=== PATIENT | female | born 1970 | race Caucasian/White ===

== ENCOUNTER → 2017-04-02 | Outpatient (CLI) | payer OTHER ==
--- NOTE | 2017-04-02 16:47 | KCIC ---
SHOULDER 2+V LEFT History: Severe left shoulder pain and limited range of motion post injury 1.5 weeks ago Comparison: None. Findings: 3 views left shoulder are submitted. No acute fracture is identified by radiographs. Left humeral head articulates normally with the glenoid. There is mild degenerative change of the acromioclavicular joint which is questionably minimally widened. Impression: 1. Other than questionable minimal widening of the left acromioclavicular joint, no acute osseous normality is identified. Electronically signed by: Harish Tejada MD (04/02/2017 4:44 PM) [facility]1
== END | disposition home or self-care (01) ==
LOC: KCIC 13:29
PROVIDERS: ATTEND Nurse Practitioner Family
DX: M25.512 Pain in left shoulder (principal)
CPT/HCPCS: 73030

== ENCOUNTER → 2017-04-06 | Outpatient (CLI) | payer OTHER ==
--- NOTE | 2017-04-06 13:12 | KCIC ---
MR of the left shoulder Indication: Left shoulder pain. Recent injury. Technique: Standard multiplanar sequences are obtained. Findings: Acromioclavicular joint: Mildly degenerative. Rotator cuff: Mild tendinosis signal and thickening but no evidence of a tear. Trace subdeltoid bursal fluid. Glenohumeral cartilage: No acute defect or advanced DJD. Fluid: No significant joint effusion. Labrum: No evidence of labral tear or para labral cyst. Biceps tendon: Intact Bones: No lesion or acute fracture. Soft tissue: No acute findings. Impression: Mild rotator cuff tendinosis without evidence of a tear. Electronically signed by: Mani Washington MD (04/06/2017 1:09 PM) [facility]2
== END | disposition home or self-care (01) ==
LOC: KCIC MRI 11:34
PROVIDERS: ATTEND Nurse Practitioner Family
DX: S49.92XA Unspecified injury of left shoulder and upper arm, initial encounter (principal); X58.XXXA Exposure to other specified factors, initial encounter; Y93.89 Activity, other specified; Y92.89 Other specified places as the place of occurrence of the external cause; Y99.8 Other external cause status
CPT/HCPCS: 73221

== ENCOUNTER → 2017-07-16 | Outpatient (CLI) | payer OTHER | END | disposition home or self-care (01) | LOC: KCIC 10:49 | DX: L03.032 Cellulitis of left toe (principal) | CPT/HCPCS: 73660 ==

== ENCOUNTER → 2018-12-16 | Outpatient (CLI) | payer OTHER ==
--- NOTE | 2018-12-16 19:06 | KCIC ---
STUDY: MRI of the left knee without contrast INDICATION: Left knee pain. COMPARISON: No prior cross-sectional imaging of the left knee is available for review. TECHNIQUE: Multiplanar MR imaging of the left knee performed without the use of intravenous or intra-articular contrast. FINDINGS: Menisci: Complex tearing of the medial meniscus body, posterior horn and root with the posterior horn somewhat macerated. Cystic structure posterior to the PCL, image 14 series 7, measuring up to 1.3 cm is suspicious for a prominent parameniscal cyst. The medial meniscus is extruded into the medial gutter by approximately 5 mm. No discrete lateral meniscal tear. Cruciate ligaments: Intact ACL and PCL. Collateral ligaments: Bowing of the MCL and keeping with subjacent medial meniscal extrusion. No acute injury to the medial or lateral collateral ligaments. Tendons: Very mild distal patellar tendinosis. No acute injury to the tendons of the knee. Cartilage: Patellofemoral: Extensive full-thickness chondral loss involving the medial patella facet and extending to involve the median ridge with subchondral edema/cystic change. Chondral loss at the inferior aspect of the medial trochlea. Lateral compartment: No full thickness defect identified. Medial compartment: Chondral thinning at the weight medial compartment as well as full-thickness chondral loss at the far posterior nonweightbearing medial femoral condyle, image 14 series 3, with subchondral edema/cystic change. Bones: Degenerative signal changes relating to overlying chondrosis, as above. No acute fracture. Miscellaneous: Moderate volume knee joint effusion. Tiny Castellanos's cyst. Very mild pes anserine bursitis. Small proximal tibiofibular joint effusion. IMPRESSION: 1. Complex tearing of the medial meniscus body, posterior horn and root with the posterior horn somewhat macerated. Probable prominent parameniscal cyst located posterior to the PCL. Medial meniscal extrusion into the medial gutter. No discrete tear of the lateral meniscus. 2. Areas of full-thickness chondral loss involving the patellofemoral compartment more so than the medial compartment, as above, with associated subchondral edema/cystic change. 3. Moderate volume knee joint effusion, tiny Castellanos's cyst and very mild pes anserine bursitis. Electronically signed by: DYLON DOOLEY MD (12/16/2018 7:03 PM) [facility]-KC[facility]2
== END | disposition home or self-care (01) ==
LOC: KCIC MRI 14:18
PROVIDERS: ATTEND Nurse Practitioner Family
DX: S83.232A Complex tear of medial meniscus, current injury, left knee, initial encounter (principal); M71.22 Synovial cyst of popliteal space [Baker], left knee; M25.462 Effusion, left knee; X58.XXXA Exposure to other specified factors, initial encounter; Y93.89 Activity, other specified; Y92.89 Other specified places as the place of occurrence of the external cause; Y99.8 Other external cause status
CPT/HCPCS: 73721

== ENCOUNTER → 2021-05-19 | Outpatient (CLI) | payer OTHER ==
--- NOTE | 2021-05-19 14:48 | KCIC ---
EXAM: Lumbar spine, 3 views. HISTORY: Pain. COMPARISON: None. FINDINGS: 3 views of the lumbar spine are obtained. There is no listhesis. There is multilevel endpla te remodeling. There is facet arthropathy predominantly at the lumbosacral junction. There is bone de los santos spected demineralization. IMPRESSION: Multilevel degenerative change, described above. No acute osseous finding. Electronically signed by: Paloma Urrutia MD (05/19/2021 2:46 PM) [id number]
--- NOTE | 2021-05-19 14:48 | KCIC ---
EXAM: Pelvis and bilateral hips, 3 views. HISTORY: Pain. COMPARISON: None. FINDINGS: A frontal view the pelvis and frog-leg views of both hips are obtained. There is no fractur e, dislocation or subluxation. The femoral heads are normal in configuration. There are anastomotic s utures within the pelvis. IMPRESSION: No acute osseous finding. Electronically signed by: Paloma Urrutia MD (05/19/2021 2:45 PM) [id number]
== END ==
LOC: KCIC 13:22
PROVIDERS: ATTEND Nurse Practitioner Family
DX: M47.817 Spondylosis without myelopathy or radiculopathy, lumbosacral region (principal); M48.8X7 Other specified spondylopathies, lumbosacral region; M25.551 Pain in right hip; M25.552 Pain in left hip
CPT/HCPCS: 72100; 73521

== ENCOUNTER → 2021-05-30 | Outpatient (CLI) | payer OTHER ==
--- NOTE | 2021-05-30 09:37 | KCIC ---
EXAM: Lumbar spine MRI without contrast. HISTORY: Degenerative disc disease. Bilateral lower extremity numbness. TECHNIQUE: Multiplanar, multisequence magnetic resonance imaging of the lumbar spine was performed wi thout contrast. COMPARISON: None. FINDINGS: There is no significant listhesis. There is multilevel endplate remodeling and disc desicca tion. There are multiple endplate Schmorl's nodes. There is no suspicious osseous lesion. There is no acute or subacute fracture. The conus terminates at the superior aspect of L2. At T11-T12, there is a small right paracentral disc protrusion superimposed on endplate remodeling. T here is moderate bilateral facet arthropathy. There is hypertrophy of the ligamentum flavum. There is mild central canal stenosis and slight deformation of the right ventral aspect of the spinal cord. At T12-L1, there is mild left facet arthropathy. There is no stenosis. At L1-L2, there is a disc bulge and endplate remodeling. There is mild right facet arthropathy. There is no stenosis. At L2-L3, there is a disc bulge and endplate remodeling. There is mild bilateral facet arthropathy. T here is no stenosis. At L3-L4, there is a disc bulge and endplate remodeling. There is moderate right and mild left facet arthropathy. There is fluid in the right facet joint. There is hypertrophy of the ligamentum flavum. There is prominent dorsal epidural fat. There is mild bilateral foraminal stenosis. There is moderate central canal stenosis. At L4-L5, there is a disc bulge and endplate remodeling. There is no stenosis. At L5-S1, there is a posterior central disc protrusion superimposed on a disc bulge and endplate janes deling. There is mild right and moderate left facet arthropathy. There is mild left foraminal stenosi s with suspected abutment of the exiting left L5 nerve root. IMPRESSION: Multilevel degenerative change involving the lower thoracic and lumbar spine, described i n detail above. This is associated with mild central canal stenosis at T11-T12, mild bilateral forami nal and moderate central canal stenosis at L3-L4, and mild left foraminal stenosis with suspected abu tment of the exiting left L5 nerve root at L5-S1. Electronically signed by: Paloma Urrutia MD (05/30/2021 9:34 AM) [id number]
== END ==
LOC: KCIC MRI 08:01
PROVIDERS: ATTEND Nurse Practitioner Family
DX: M47.815 Spondylosis without myelopathy or radiculopathy, thoracolumbar region (principal); M48.04 Spinal stenosis, thoracic region; M48.061 Spinal stenosis, lumbar region without neurogenic claudication; M51.27 Other intervertebral disc displacement, lumbosacral region; M48.8X7 Other specified spondylopathies, lumbosacral region; M51.46 Schmorl's nodes, lumbar region; M51.36 Other intervertebral disc degeneration, lumbar region
CPT/HCPCS: 72148

== ENCOUNTER → 2021-06-06 | Outpatient (CLI) | payer OTHER ==
[~2021-06-06] MED LIST: CANA300T PO; CITA40TA6 PO; CYAN500T7 PO; DICL75TA PO; FURO-69 PO; GABA300C18 PO; GLIP10TA PO; LOSA1TAB22 PO; SITA1TAB11 PO; VITAMIN D; ZOLP5TAB5 PO
--- NOTE | 2021-06-06 16:14 | PDOC1 ---
INITIAL PAIN CONSULT DATE OF SERVICE: DOS: DATE: 06/06/21 TIME: 16:06 CHIEF COMPLAINT: Chief Complaint: Low back and right lower extremity pain HISTORY OF PRESENT ILLNESS: 51-year-old female presents with history of pain low back right lower extremity for about 2 months now not result of any specific injury or accident that she is aware of is getting worse with time worse with standing walking changing posit ions better with sitting or laying down but is been waking her from sleep about 3-4 times at night patient reports it does not affect her bowel bladder control does affect her ability to walk and stand especially with standing for more than 5 to 10 minutes patient reports is worse in the morning and then worse as the day goes on patient reports its constant sharp in the back shooting and throbbing in the right lower extremity radiating into the posterior gluteus lateral thigh posterior calf posterior knee as well and much weaker on the right side than the left with walking and standing. Patient reports she has not fallen but she has significant weakness and has difficulty dragging her right foot after he has been on her feet for several hours. Patient has had chiropractic treatment the past also massage therapies and is doing physical therapy exercises as her family member is a physical therapist and is helping her with these as well patient reports no significant improvement and has been temporary as well as the chiropractic treatments and massage therapies. Patient is taking acetaminophen at least 3-4 times a day and is not helping significantly as well she is also tried [id number] ibuprofen but this caused some stomach upset. Patient reports that her disability rating from 0-10 10 me the worst is a 6 with family home responsibilities 7 with occupation 6 with sexual behavior 5 with recreation social activity 5 with self-care and 3 with life support activities. Patient did have a MRI scan lumbar spine showing multilevel degenerative change with disc bulging L3-4 L4-5 and L5-S1 with moderate right and mild left facet arthropathy at L3-4 with mild bilateral foraminal stenosis and moderate central canal stenosis L5-S1 shows posterior central disc protrusion superimposed on disc bulge and endplate remodeling mild right and moderate left facet arthropathy with mild left foraminal stenosis with suspected abutment of the exiting L5 nerve root. Patient reports no loss of motor function but significant fatigability and "tired feeling" of the right lower extremity with activity. PAST MEDICAL HISTORY: PMH: Arthritis, hypertension, type 2 diabetes, polycystic ovaries, depression PREVIOUS SURGERIES: Past Surgical Hx: Total abdominal hysterectomy, left knee scope CURRENT MEDICATIONS: Current Meds: Active Scripts Medications Dose Route/Sig Max Daily Dose Days Date Category Gabapentin (Gabapentin) 300 Mg Capsule 300 Mg PO HS 06/06/21 Reported Losartan-Hctz 100-25 Mg Tab (Losartan/Hydrochlorothiazide) 1 Each Tablet 1 Tab PO DAILY 06/06/21 Reported Janumet 50-1,000 Mg Tablet (Sitagliptin Phos/Metformin Hcl) 1 Each Tablet 1 Tab PO BID 06/06/21 Reported Zolpidem Tartrate 5 Mg Tablet 5 Mg PO PRN QHS PRN 06/06/21 Reported Glucotrol (Glipizide) 10 Mg Tablet 20 Mg PO BID 06/06/21 Reported Diclofenac Sodium 75 Mg Tablet.dr 1 Tab PO BID 06/06/21 Reported [Vitamin D 1 daily] 06/06/21 Reported Citalopram Hbr (Citalopram Hydrobromide) 40 Mg Tablet 1 Tab PO DAILY 06/06/21 Reported Lasix (Furosemide) 20 Mg Tablet 1 Tab PO DAILY 30 06/06/21 Reported Vitamin B-12 (Cyanocobalamin (Vitamin B-12)) 500 Mcg Tablet 1 Tab PO DAILY 30 06/06/21 Reported Invokana (Canagliflozin) 300 Mg Tablet 1 Tab PO DAILY 30 06/06/21 Reported ALLERGIES; Allergies: Coded Allergies: mushroom (Verified Allergy, Severe, "swelling and can't breathe", 06/06/21) pepper (genus Capsicum) (Verified Allergy, Severe, Tongue swells, hives., 06/06/21) FAMILY HISTORY: Family Hx: Diabetes, hypertension SOCIAL HISTORY: Social Hx: Patient is under alcohol does not smoke not use any illegal illicit recreational drugs is lives with her spouse lives in [facility] and 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 PHYSICAL EXAM: VS: Blood pressure 177/117 rechecked 156/112 pulse 80 respiration 16 temperature 98.0 F height 68 inches weight is 282 pounds PE: PHYSICAL EXAMINATION: GENERAL: The patient is awake, alert, oriented, appropriate, very pleasant in demeanor HEENT: Shows normocephalic, atraumatic. Extraocular movements are intact and symmetrical. Oral cavity: Mucous membranes moist and pink. Dentition is intact. NECK: Shows anterior throat supple without palpable lymphadenopathy noted. Swallow reflex symmetrical. CHEST: Shows normal on inspection. Breath sounds are clear bilaterally, distant but no rales rhonchi wheezes auscultated. HEART: Shows S1, S2 clear. No murmurs auscultated. ABDOMEN: Soft, nontender, nondistended. No palpable organomegaly is noted. No rebound or guarding demonstrated. BACK: Shows spine grossly in the midline. Normal-appearing cervical lordotic curvature. There is increased thoracic kyphosis, minor flattening of the lumbar lordotic curvature. Lumbar paraspinous muscles show symmetrical on inspection, on palpation shows some moderate tenderness diffusely throughout the upper, middle and lower distribution of the paraspinous muscles bilaterally and also into the lower thoracic paraspinous musculature, firm and tender, but without specific trigger points, without radiation of pain. The patient has good rotational motion of the lumbar spine, both laterally as well as extension and flexion without significant difficulty. No tenderness over the spinous processes, sacrum or sacroiliac regions. EXTREMITIES: Lower extremities show deep tendon reflexes 1+ in the patellar and tendo calcaneus tendons. Motor exam is 4 on a scale of 5 with right dorsiflexion, extension, quadriceps and hamstring flexion and 5/5 on the left. Peripheral pulses are 1+ posterior tibial. No peripheral edema is noted bilaterally. Lower extremities are warm and dry to touch, equal in color and a ppearance. Straight leg raise noted to be positive on the right about 35 degrees, left side is negative. Gaenslen's and James's maneuvers are negative bilaterally. The patient is able to stand, stand on her toes without significant difficulty loss of balance, walks with a favoring gait favoring the right lower extremity with a slight limp not using any assistive devices to amb ulate. SKIN: Shows warm and dry, good turgor. No edema. No sores, rashes or bruising throughout. IMPRESSION: Impression: 51-year-old female with a 2-month history increasing pain low back right lower extremity radicular fashion following an L5-S1 dermatomal distribution. MRI scan lumbar spine as noted Hypertension Arthritis Diabetes type 2 Plan: Options were discussed the patient including serve medical managements physical therapies and interventional techniques. As patient is currently undergoing chiropractic treatment as well as therapies she would like to pursue interventional techniques. We discussed a lumbar epidural steroid injection using descriptions as well as anatomical models to describe the procedure. Patient wait for preauthorization with her insurance provider, once obtained we will have her return for translaminar approach L5-S1 level lumbar epidural steroid injection with fluoroscopic guidance. In the meantime, patient will continue with stretching strength exercises chiropractic treatment as well as oral analgesics as currently. MAGGI HUFF MD Jun 06, 2021 16:14
== END | disposition home or self-care (01) ==
LOC: PNCL 14:14
PROVIDERS: ATTEND Anesthesiology
DX: M54.50 Low back pain, unspecified (principal); M79.604 Pain in right leg; M19.90 Unspecified osteoarthritis, unspecified site; I10 Essential (primary) hypertension; E11.9 Type 2 diabetes mellitus without complications; F32.9 Major depressive disorder, single episode, unspecified; Z79.84 Long term (current) use of oral hypoglycemic drugs; Z79.899 Other long term (current) drug therapy; Z90.710 Acquired absence of both cervix and uterus; Z98.890 Other specified postprocedural states; Z88.8 Allergy status to other drugs, medicaments and biological substances
CPT/HCPCS: 99214; G0463

== ENCOUNTER → 2021-06-20 | Outpatient (CLI) | payer OTHER ==
[~2021-06-20] MED LIST changes: +IOHEXOL 180 MG/ML 10 ML VIAL. ONE; +methylPREDNISolone ACETATE 80 MG/ML VIAL. ONE
--- NOTE | 2021-06-20 13:50 | PDOC ---
Progress Note - Pain Clinic Date of Service: DOS: DATE: 06/20/21 TIME: 13:47 Diagnosis: Dx: Lumbar radiculopathy with lumbar degenerative disease and lumbar spinal stenosis History or Present Illness: HPI: 51-year-old female with returns with complaints of pain low back and in the right lower extremity posterior gluteus posterior thigh posterior calf also some in the anterior thigh on the right side as well. 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 Patient reports no bowel or bladder incontinence no loss of motor function with significant fatigability the right lower extremity with standing activity and specially bending and lifting. Patient is type II diabetic with insulin resistance diabetes and we discussed the importance of watching her blood sugars after today's procedure as it will generally be elevated for several days. Patient understands to watch this closely we also discussed that if it is not coming down within 1 week that she will contact her primary care physician for additional medication if necessary. Physical Exam: VS: Blood pressure is 150 419 pulse 90 respirations 16 temperature 98.0 F weight is 280 pounds PE: PHYSICAL EXAMINATION: GENERAL: The patient is awake, alert, oriented, appropriate, very pleasant in demeanor HEENT: Shows normocephalic, atraumatic. Extraocular movements are intact and symmetrical. Oral cavity: Mucous membranes moist and pink. Dentition is intact. NECK: Shows anterior throat supple without palpable lymphadenopathy noted. Swallow reflex symmetrical. CHEST: Shows normal on inspection. Breath sounds are clear bilaterally. HEART: Shows S1, S2 clear. No murmurs auscultated. ABDOMEN: Soft, nontender, nondistended. No palpable organomegaly is noted. BACK: Shows spine grossly in the midline. Normal-appearing cervical lordotic curvature. There is increased thoracic kyphosis, some moderate flattening of the lumbar lordotic curvature. Lumbar paraspinous muscles show symmetrical on inspection, on palpation shows some moderate tenderness diffusely throughout the upper, middle and lower distribution of the paraspinous muscles, but without specific trigger points, without radiation of pain. The patient has good rotational motion of the lumbar spine, both laterally as well as extension and flexion without significant difficulty. EXTREMITIES: Lower extremities show deep tendon reflexes 1+ in the patellar and tendo calcaneus tendons. Motor exam is 4 on a scale of 5 with right dorsiflexion, extension, quadriceps and hamstring flexion and 5/5 on the left. Peripheral pulses are 1+ posterior tibial. No peripheral edema is noted bilaterally. Lower extremities are warm and dry. SKIN: Shows warm and dry, good turgor. No edema. No sores, rashes or bruising throughout. Procedure: Procedure: Options discussed with patient. Patient's old heart was reviewed as her current medication regimen updated current review of systems updated today as well. We will proceed with lumbar epidural steroid injection today with fluoroscopic guidance. Risks were discussed including but not limited to: Bleeding, infection, possibility of epidural hematoma and subsequent neurological compromise, dural puncture, headaches, spinal cord and/or nerve damage, side effects of steroid medication, and poor results regarding pain control. Patient understands and wished to proceed. Patient will return to the clinic in approximate 2 weeks for follow-up, was counseled as to return appointment, activity level, and side effect to be aware of. Medication Injected: Med Injected: Procedure is lumbar epidural steroid injection under local anesthetic using sterile prep and drape at the L5-S1 level using C-arm fluoroscopic guidance in both AP and lateral views medications injected is 120 mg Depo-Medrol +10mL preservative-free normal saline and 2 mL contrast- condition at discharge is s table patient tolerated procedure well had no complications. Condition at Discharge: Condition at Discharge: Condition at discharge stable, the patient tolerated the procedure well and had no complications. MAGGI HUFF MD Jun 20, 2021 13:50
--- NOTE | 2021-06-20 13:51 | PDOC4 ---
Procedure Note: ICD 10 Code: ICD 10 Code: M54.17 M5 1.87 M4 8.07 Procedure Note: Patient was consented for lumbar epidural steroid injection with fluoroscopic guidance. Risks were discussed including but not limited to: Bleeding, infection, possibility of epidural hematoma and subsequent neurological compromise, dural puncture, headaches, spinal cord and/or nerve damage, side effects of steroid medication, and poor results regarding pain control. Patient understands and wished to proceed. Procedure is lumbar epidural steroid injection under local anesthetic using st erile prep and drape at the L5-S1 level using C-arm fluoroscopic guidance in both AP and lateral views medications injected is 120 mg Depo-Medrol +10mL preservative-free normal saline and 2 mL contrast- condition at discharge is stable patient tolerated procedure well had no complications. MAGGI HUFF MD Jun 20, 2021 13:51
== END | disposition home or self-care (01) ==
LOC: PNCL 13:02
PROVIDERS: ATTEND Anesthesiology
DX: M51.16 Intervertebral disc disorders with radiculopathy, lumbar region (principal); M48.061 Spinal stenosis, lumbar region without neurogenic claudication; Z79.899 Other long term (current) drug therapy; Z88.8 Allergy status to other drugs, medicaments and biological substances
CPT/HCPCS: 62323; J1040; Q9965

== ENCOUNTER → 2021-07-11 | Outpatient (CLI) | payer OTHER ==
[~2021-07-11] MED LIST changes: +DEXAMETHASONE PRES.FREE 10 MG/ML VIAL. ONE; -IOHEXOL 180 MG/ML 10 ML VIAL. ONE; -methylPREDNISolone ACETATE 80 MG/ML VIAL. ONE
--- NOTE | 2021-07-11 15:28 | PDOC ---
Progress Note - Pain Clinic Date of Service: DOS: DATE: 07/11/21 TIME: 15:25 Diagnosis: Dx: Lumbar radiculopathy lumbar degenerative disease lumbar spinal stenosis History or Present Illness: HPI: 51-year-old female returns for follow-up status post lumbar epidural steroid injection x1. Patient reports about 98% improvement now still some pain in the low back and the right lower extremity but only very infrequently patient reports of increasing her activity with greater ease and comfort and work activities household activities try with greater ease and comfort sleeping well at night does not awaken her from sleep patient reports her pain is a 3 on scale 10 is worst over the past week 2 on average 0 its least is a 2 today patient reports it can be sharp and tight in the low back and the right leg posterior gluteus posterior thigh are off in intensity but again doing much better she is very pleased with her progress also reports that the pain in her left ankle she has had for years is now completely resolved in the medial ankle. Patient reports no bowel or bladder incontinence no loss of motor function and is very pleased with her progress thus far. Physical Exam: VS: Blood pressure is 141/100 pulse 98 respirations are 18 temperature 98.2 F h eight is 68 inches weight is 272 pounds. PE: PHYSICAL EXAMINATION: GENERAL: The patient is awake, alert, oriented, appropriate, very pleasant in demeanor HEENT: Shows normocephalic, atraumatic. Extraocular movements are intact and symmetrical. Oral cavity: Mucous membranes moist and pink. Dentition is intact. NECK: Shows anterior throat supple without palpable lymphadenopathy noted. Swallow reflex symmetrical. CHEST: Shows normal on inspection. Breath sounds are clear bilaterally. HEART: Shows S1, S2 clear. No murmurs auscultated. ABDOMEN: Soft, nontender, nondistended. No palpable organomegaly is noted. No rebound or guarding demonstrated. BACK: Shows spine grossly in the midline. Normal-appearing cervical lordotic curvature. There is slightly increased thoracic kyphosis, some mild flattening of the lumbar lordotic curvature. Lumbar paraspinous muscles show symmetrical on inspection, on palpation shows some moderate tenderness diffusely throughout the upper, middle and lower distribution of the paraspinous muscles without specific trigger points, without radiation of pain. The patient has good rota tional motion of the lumbar spine, both laterally as well as extension and flexion without significant difficulty. No tenderness over the spinous processes, sacrum or sacroiliac regions. EXTREMITIES: Lower extremities show deep tendon reflexes 1 in the patellar and tendo calcaneus tendons. Motor exam is 4 on a scale of 5 with right dorsiflexion, extension, quadriceps and hamstring flexion and 5/5 on the left. Peripheral pulses are 1+ posterior tibial. No peripheral edema is noted bilaterally. Lower extremities are warm and dry to touch, equal in color and appearance. SKIN: Shows warm and dry, good turgor. No edema. No sores, rashes or bruising throughout. Procedure: Procedure: Options discussed with patient. Patient's old chart was viewed as her current medication regimen updated her review of systems updated today as well. We will proceed with a lumbar epidural steroid injection today with fluoroscopic guidance. Risks were discussed including but not limited to: Bleeding, infection, possibility of epidural hematoma and subsequent neurological compromise, dural puncture, headaches, spinal cord and/or nerve damage, side effects of steroid medication, and poor results regarding pain control. Patient understands and wished to proceed. Patient will return to the clinic in approximately 2 weeks for follow-up, was counseled as to return appointment, activity level, and side effects to be aware of. Medication Injected: Med Injected: Procedure is lumbar epidural steroid injection under local anesthetic using sterile prep and drape at the L5-S1 level using C-arm fluoroscopic guidance in both AP and lateral views medications injected is 20 g dexamethasone +10mL preservative-free normal saline and 2 mL contrast- condition at discharge is stable patient tolerated procedure well had no complications. Condition at Discharge: Condition at Discharge: Condition at discharge stable, patient Amber the procedure well and had no complications. MAGGI HUFF MD Jul 11, 2021 15:28
--- NOTE | 2021-07-11 15:29 | PDOC4 ---
Procedure Note: ICD 10 Code: ICD 10 Code: M54.17 M51.7 M4 8.07 Procedure Note: Patient was consented for lumbar epidural steroid injection with fluoroscopic guidance. Risks were discussed including but not limited to: Bleeding, infection, possibility of epidural hematoma and subsequent neurological compromise, dural puncture, headaches, spinal cord and/or nerve damage, side effects of steroid medication, and poor results regarding pain control. Patient understands and wished to proceed. Procedure is lumbar epidural steroid injection under local anesthetic using ster ile prep and drape at the L5-S1 level using C-arm fluoroscopic guidance in both AP and lateral views medications injected is 20 g dexamethasone +10mL preservative-free normal saline and 2 mL contrast- condition at discharge is stable patient tolerated procedure well had no complications. MAGGI HUFF MD Jul 11, 2021 15:29
== END | disposition home or self-care (01) ==
LOC: PNCL 14:34
PROVIDERS: ATTEND Anesthesiology
DX: M51.16 Intervertebral disc disorders with radiculopathy, lumbar region (principal); M48.061 Spinal stenosis, lumbar region without neurogenic claudication; Z79.899 Other long term (current) drug therapy; Z88.8 Allergy status to other drugs, medicaments and biological substances
CPT/HCPCS: 62323; J1100

== ENCOUNTER → 2021-07-25 | Outpatient (CLI) | payer OTHER ==
[~2021-07-25] MED LIST changes: +IOHEXOL 180 MG/ML 10 ML VIAL. ONE
--- NOTE | 2021-07-25 15:45 | PDOC ---
Progress Note - Pain Clinic Date of Service: DOS: DATE: 07/25/21 TIME: 15:42 Diagnosis: Dx: Lumbar radiculopathy with lumbar degenerative disease lumbar spinal stenosis History or Present Illness: HPI: 81-year-old female returns for follow-up status post lumbar epidural steroid injections x2. Patient reports about 100% improvement for the first week following the injection and the pain began to return in the low back and the right hip but also in the left lower extremity with pain in the left ankle and calf patient reports that sharp in the ankle tight in the back shooting in the calf burning in the ankle constant in the ankle with walking standing and weightbearing patient reports is a 6 on scale 10 is worse over the past week for an average 1 its least is a 1 today patient reports much better with sitting or laying down generally is not awaken her from sleep at night patient reports no bowel or bladder incontinence no loss of motor function but still significant fatigability with the left lower extremity and also pain in the right low back. Physical Exam: VS: Blood pressure is 166/99 pulse 81 respirations 18 temperature 98.4 F 5 feet 8 inches weight is 276 pounds. PE: PHYSICAL EXAMINATION: GENERAL: The patient is awake, alert, oriented, appropriate, very pleasant in demeanor HEENT: Shows normocephalic, atraumatic. Extraocular movements are intact and symmetrical. Patient wearing eyeglasses. Oral cavity: Mucous membranes moist and pink. Dentition is intact. NECK: Shows anterior throat supple without palpable lymphadenopathy noted. Swallow reflex symmetrical. CHEST: Shows normal on inspection. Breath sounds are clear bilaterally. HEART: Shows S1, S2 clear. No murmurs auscultated. ABDOMEN: Soft, nontender, nondistended. No palpable organomegaly is noted. BACK: Shows spine grossly in the midline. Normal-appearing cervical lordotic curvature. There is moderately increased thoracic kyphosis, some mild flattening of the lumbar lordotic curvature. Lumbar paraspinous muscles show symmetrical on inspection, on palpation shows some moderate tenderness diffusely throughout the upper, middle and lower distribution of the paraspinous muscles without specific trigger points, without radiation of pain. The patient has good rotational motion of the lumbar spine, both laterally as well as extension and flexion without significant difficulty. . EXTREMITIES: Lower extremities show deep tendon reflexes 1+ to in the patellar and tendo calcaneus tendons. Motor exam is 4 on a scale of 5 with right dorsiflexion, extension, quadriceps and hamstring flexion and 5/5 on the left. Peripheral pulses are 1+ posterior tibial. No peripheral edema is noted bilaterally. Lower extremities are warm and dry to touch, equal in color and appearance. SKIN: Shows warm and dry, good turgor. No edema. No sores, rashes or bruising throughout. Procedure: Procedure: Options discussed with the patient. Patient's old chart was reviewed as her current medication regimen updated current review of systems updated today as well. We will proceed with a lumbar epidural steroid injection today with f luoroscopic guidance. Risks were discussed including but not limited to: Bleeding, infection, possibility of epidural hematoma and subsequent neurological compromise, dural puncture, headaches, spinal cord and/or nerve damage, side effects of steroid medication, and poor results regarding pain control. Patient understands and wished to proceed. Patient will return to the clinic in approximately 2 weeks for follow-up, was counseled as to return appointment, active level, and side effect to be aware of. Medication Injected: Med Injected: Procedure is lumbar epidural steroid injection under local anesthetic using sterile prep and drape at the L5-S1 level using C-arm fluoroscopic guidance in both AP and lateral views medications injected is 20 mg dexamethasone +10mL preservative-free normal saline and 2 mL contrast- condition at discharge is stable patient tolerated procedure well had no complications. Condition at Discharge: Condition at Discharge: Condition at discharge stable, patient Amber the procedure well had no complications. MAGGI HUFF MD Jul 25, 2021 15:45
--- NOTE | 2021-07-25 15:46 | PDOC4 ---
Procedure Note: ICD 10 Code: ICD 10 Code: M54.17 M51.87 M4 8.07 Procedure Note: Patient was consented for lumbar epidural steroid injection with fluoroscopic guidance. Risks were discussed including but not limited to: Bleeding, infection, possibility of epidural hematoma and subsequent neurological compromise, dural puncture, headaches, spinal cord and/or nerve damage, side effects of steroid medication, and poor results regarding pain control. Patient understands and wished to proceed. Procedure is lumbar epidural steroid injection under local anesthetic using gorge rile prep and drape at the L5-S1 level using C-arm fluoroscopic guidance in both AP and lateral views medications injected is 20 mg dexamethasone +10mL preservative-free normal saline and 2 mL contrast- condition at discharge is stable patient tolerated procedure well had no complications. MAGGI HUFF MD Jul 25, 2021 15:46
== END | disposition home or self-care (01) ==
LOC: PNCL 14:27
PROVIDERS: ATTEND Anesthesiology
DX: M51.16 Intervertebral disc disorders with radiculopathy, lumbar region (principal); M48.061 Spinal stenosis, lumbar region without neurogenic claudication; Z79.899 Other long term (current) drug therapy; Z88.8 Allergy status to other drugs, medicaments and biological substances
CPT/HCPCS: 62323; J1100; Q9965